=== PATIENT | female | born 1955 | race Caucasian/White ===

== ENCOUNTER → 2016-08-24 | Outpatient (CLI) | payer OTHER ==
[~2016-08-24] MED LIST: ASPIRIN E.C. 8181 MG PO; CIPRO250 M1 PO; CLEOCIN HC150 MG/CAP PO; FLUTICASONE PRO; HCTZ 25MG25 MG PO; LISINOPRIL20 MG PO; METFORMIN PO; PYRIDIUM100 M1 PO; SIMVASTATIN40 M1 PO; VENLAFAXINE HYD75 MG PO
== END ==
LOC: VAS 15:40
DX: R55 Syncope and collapse (principal); I10 Essential (primary) hypertension; Z82.49 Family history of ischemic heart disease and other diseases of the circulatory system; E11.9 Type 2 diabetes mellitus without complications; Z79.84 Long term (current) use of oral hypoglycemic drugs; Z87.891 Personal history of nicotine dependence; R06.00 Dyspnea, unspecified; I20.8 Other forms of angina pectoris

== ENCOUNTER → 2016-08-26 | Outpatient (CLI) | payer OTHER | LOC: CARDREHAB 07:39 | DX: R55 Syncope and collapse (principal) | CPT/HCPCS: A9500 ==

== ENCOUNTER 2016-10-27 14:56 | Outpatient (RCR) | payer OTHER ==
[2015-03-14 22:47] VITALS: BP 149/78
== END 2017-01-25 | disposition home or self-care (01) ==
LOC: CARDREHAB
DX: Z48.812 Encounter for surgical aftercare following surgery on the circulatory system (principal); Z95.1 Presence of aortocoronary bypass graft

== ENCOUNTER → 2017-09-05 | Outpatient (CLI) | payer BC ==
[2015-03-14 22:47] VITALS: BP 149/78
== END ==
LOC: MAMMO 16:00
DX: Z12.31 Encounter for screening mammogram for malignant neoplasm of breast (principal)

== ENCOUNTER → 2018-10-03 | Outpatient (CLI) | payer BC ==
[2015-03-14 22:47] VITALS: BP 149/78
== END ==
LOC: MAMMO 09-25 16:00
DX: Z12.31 Encounter for screening mammogram for malignant neoplasm of breast (principal); Z78.0 Asymptomatic menopausal state

== ENCOUNTER → 2020-06-30 | Outpatient (CLI) | payer BC ==
[2015-03-14 22:47] VITALS: BP 149/78
== END ==
LOC: RAD 06-25 10:00
DX: Z12.31 Encounter for screening mammogram for malignant neoplasm of breast (principal); I70.213 Atherosclerosis of native arteries of extremities with intermittent claudication, bilateral legs; M47.813 Spondylosis without myelopathy or radiculopathy, cervicothoracic region; M48.02 Spinal stenosis, cervical region; M50.21 Other cervical disc displacement, high cervical region

== ENCOUNTER → 2020-07-16 | Outpatient (CLI) | payer BC ==
[2015-03-14 22:47] VITALS: BP 149/78
== END ==
LOC: RAD 07-15 15:30
DX: I70.0 Atherosclerosis of aorta (principal); I70.203 Unspecified atherosclerosis of native arteries of extremities, bilateral legs
CPT/HCPCS: Q9967

== ENCOUNTER 2021-04-29 12:46 | Emergency (ER) | payer BC ==
[2021-04-29] MEDS ORDERED: ASPIRIN E.C. 8181 MG (13:23)
[2021-04-29] MEDS ORDERED: LOPRESSOR 225 MG/TAB PO (13:23)
[2021-04-29] MEDS ORDERED: CLOPIDOGREL75 M2 PO (13:23)
[2021-04-29 13:33] LABS: BASO # 0.06 K/mm3 (0.02-0.10); EOS % 5.8 % (1.0-5.0); HEMOGLOBIN 9.4 g/dL (12.5-16.0); MEAN CELL VOLUME 78 fl (78-100); MEAN CORPUSCULAR HEMOGLOBIN 24 pg (27-31); MEAN CORPUSCULAR HGB CONC 30 g/dL (33-37); MEAN PLATELET VOLUME 8.7 fl (7.4-10.4); MONO # 0.75 K/mm3 (0.20-0.80); NEU # 3.99 K/mm3 (1.40-6.50); PLATELET COUNT 358 K/mm3 (130-400); RED CELL DISTRIBUTION WIDTH 15.1 % (11.5-14.5); WHITE BLOOD COUNT 6.9 K/mm3 (4.8-10.8)
[2021-04-29 13:46] LABS: POTASSIUM 3.7 mmol/L (3.5-5.1)
[2021-04-29 13:48] LABS: CALCIUM 9.2 mg/dL (8.3-10.5)
[2021-04-29] MEDS ORDERED: NAPROSYN500 M1 PO (14:46)
[2021-04-29 14:56] VITALS: BP 108/58
== END 2021-04-29 14:57 | disposition home or self-care (01) ==
LOC: ED 12:46
PROVIDERS: Nurse Practitioner
DX: M10.9 Gout, unspecified (principal); N30.01 Acute cystitis with hematuria; E11.9 Type 2 diabetes mellitus without complications; I73.9 Peripheral vascular disease, unspecified; Z79.84 Long term (current) use of oral hypoglycemic drugs

== ENCOUNTER → 2022-06-27 | Outpatient (CLI) | payer BC ==
[~2022-06-27] MED LIST changes: +ASPIRIN E.C. 8181 MG; +CLOPIDOGREL75 M2 PO; +LOPRESSOR 225 MG/TAB PO; +NAPROSYN500 M1 PO
== END ==
LOC: MAMMO 10:26
DX: Z12.31 Encounter for screening mammogram for malignant neoplasm of breast (principal)